=== PATIENT | female | born 1950 | race Hispanic/Latino ===

== ENCOUNTER 2020-09-24 18:26 | Emergency (ER) | payer MEDICARE ==
[~2020-09-24] VITALS: Ht 157.5 cm; Wt 66.0 kg
[2020-09-24] MEDS ORDERED: ATORVASTATIN CA20 MG PO (19:03)
[2020-09-24] MEDS ORDERED: MULTIVITAMINS1 EAC6 PO (19:03)
[2020-09-24] MEDS ORDERED: LEVOTHYROXINE75 MCG PO (19:03)
[2020-09-24] MEDS ORDERED: AMLODIPINE BESYL5 MG PO (19:03)
[2020-09-24] MEDS ORDERED: COQ-10100 MG (19:03)
[2020-09-24] MEDS ORDERED: CALCIUM CARBON500 MG PO (19:03)
== END 2020-09-24 20:04 | disposition home or self-care (01) ==
LOC: FSED 18:34
DX: R00.2 Palpitations (principal); R00.1 Bradycardia, unspecified; I10 Essential (primary) hypertension; E03.9 Hypothyroidism, unspecified; E78.5 Hyperlipidemia, unspecified
CPT/HCPCS: 80053; 85025; 93005; 99283